=== PATIENT | female | born 1945 | race American Indian/Alaskan Native ===

== ENCOUNTER 2016-06-06 15:35 | Outpatient (CLI) | payer MEDICARE, OTHER | END 2016-06-06 15:36 | disposition home or self-care (01) | LOC: LABHHL 15:35 | PROVIDERS: ATTEND Internal Medicine Gastroenterology | DX: Z12.11 Encounter for screening for malignant neoplasm of colon (principal); K59.00 Constipation, unspecified; R10.32 Left lower quadrant pain | CPT/HCPCS: 88305 ==

== ENCOUNTER 2016-07-04 10:24 | Outpatient (CLI) | payer MEDICARE, OTHER ==
--- NOTE | 2016-07-04 14:19 | Mammography Report ---
BILATERAL DIGITAL SCREENING MAMMOGRAM with CAD: 07/04/16 10:24:00 CLINICAL: Routine screening. COMPARISON:06/21/14 FINDINGS: The breasts are heterogeneously dense, which may obscure small masses. No mass, architectural distortion or suspicious calcifications. IMPRESSION: No mammographic evidence of malignancy. BI-RADS CATEGORY: 1 - - Negative RECOMMENDATION: Routine mammographic screening in one year. COMMENT: Patient follow-up letters are generated by our [employer] MD application. The
--- NOTE | 2016-07-04 14:20 | Mammography Report ---
BONE DEXA:07/04/16 10:24:00 CLINICAL: Postmenopausal. No comparison. TECHNIQUE: Two site bone DEXA performed on an Hologic scanner. FINDINGS: The average BMD of the lumbar spine L1-L4 is 1.118g/cm squared with a T-score of -0.3 and a Z-score of by 2.1. The average BMD of the left hip is 0.831g/cm squared with a T-score of -1.3 and a Z-score of -0.1. IMPRESSION: 1. WHO classification: Normal with average fracture risk based on lumbar spine measurements. 2. WHO classification: Osteopenia with increased fracture risk based on left hip measurements. RECOMMENDATION: Clinical correlation and routine screening. DEFINITIONS: BMD = Bone Mineral Density T-score = BMD related to mean peak bone mass of young adult (mean expressed in Standard Deviation) Z-score = Age matched BMD expressed in SD World Health Organization (WHO) Diagnostic Criteria Normal T-score > -1 SD Osteopenia T-score between -1 and -2.4 SD Osteoporosis T-score -2.5 SD or below NOTE: BMD is not the only risk factor for fracture. One should also consider factors such as the patient's age, risk of falling, previous osteoporotic fracture, family history of osteoporotic fractures, current smoker, and low body weight. Z-scores are not calculated if >80 years of age.
== END 2016-07-04 10:25 | disposition home or self-care (01) ==
LOC: SPVWC 10:24
PROVIDERS: ATTEND Family Medicine
DX: Z12.31 Encounter for screening mammogram for malignant neoplasm of breast (principal); Z13.820 Encounter for screening for osteoporosis; M85.88 Other specified disorders of bone density and structure, other site; Z78.0 Asymptomatic menopausal state
CPT/HCPCS: 77080; G0202; 77067

== ENCOUNTER 2019-06-09 09:50 | Emergency (ER) | payer MEDICARE, OTHER ==
[2019-06-09 13:21] LABS: Bilirubin,Urine NEG (Negative); Blood,Urine NEG (Negative); Color,Urine Yellow (Yellow); Protein,Urine <15 mg/dL mg/dL (Negative); Urobilinogen,Urine < 2.0 mg/dL (<2.0)
[2019-06-09 13:36] LABS: WBC,Urine < 1.0 /HPF (0.0-6.0)
--- NOTE | 2019-06-09 14:15 | Emergency Department Report ---
ED General Adult HPI - General Chief complaint: Back Pain/Injury Stated complaint: LOWER BACK PAIN EXTREME Time Seen by Provider: 06/09/19 13:25 Source: patient Mode of arrival: Ambulatory Limitations: No Limitations - History of Present Illness Initial comments: 73yo BF states that she has low-mid back pain that has been present for weeks but became worse last night. She denies injury or fall. Pt states that she receives some comfort while lying flat but then she begins to have muscle spasms. -: week(s) (3) Location: back Radiation: non-radiation Severity scale (0 -10): 10 Quality: aching Consistency: constant Improves with: none Worsens with: movement Associated Symptoms: denies other symptoms Treatments Prior to Arrival: none - Related Data Allergies Allergy/AdvReac Type Severity Reaction Status Date / Time No Known Allergies Allergy Unverified 06/09/19 09:52 ED Review of Systems ROS: Stated complaint: LOWER BACK PAIN EXTREME Other details as noted in HPI Constitutional: no symptoms reported Musculoskeletal: as per HPI ED Past Medical Hx - Past Medical History Previous Medical History?: Yes Hx Hypertension: Yes Hx Diabetes: Yes Additional medical history: Hyperlipidemia - Surgical History Past Surgical History?: Yes Additional Surgical History: hysterectomy, intestin - Social History Smoking Status: Never Smoker Substance Use Type: None ED Physical Exam - General Limitations: No Limitations General appearance: alert, in no apparent distress - Head Head exam: Present: atraumatic, normocephalic - Eye Eye exam: Present: normal appearance, PERRL, EOMI Pupils: Present: normal accommodation - ENT ENT exam: Present: normal exam, normal orophraynx - Neck Neck exam: Present: normal inspection, full ROM. Absent: tenderness - Respiratory Respiratory exam: Present: normal lung sounds bilaterally. Absent: respiratory distress, wheezes - Cardiovascular Cardiovascular Exam: Present: regular rate, normal rhythm, normal heart sounds - GI/Abdominal GI/Abdominal exam: Present: soft. Absent: distended, tenderness - Rectal Rectal exam: Present: deferred - Extremities Exam Extremities exam: Present: normal inspection, full ROM. Absent: tenderness - Back Exam Back exam: Present: full ROM (limted flexion and extension), vertebral tenderness (lower lumbar tenderness). Absent: CVA tenderness (R), CVA tenderness (L) - Neurological Exam Neurological exam: Present: alert, altered, oriented X3, normal gait - Psychiatric Psychiatric exam: Present: normal affect, normal mood. Absent: depressed - Skin Skin exam: Present: warm, dry, intact ED Course Vital Signs 06/09/19 06/09/19 06/09/19 09:56 10:13 14:52 Temperature 98.1 F 98.1 F 97.6 F Pulse Rate 82 82 68 Respiratory 18 16 12 Rate Blood Pressure 145/84 Blood Pressure 145/84 142/74 [Right] O2 Sat by Pulse 99 99 Oximetry ED Medical Decision Making - Radiology Data [facility] [address] [place] [address] Cat Scan Report Signed Patient: RAUL CABRERA MR#: [id number] : 1945 Acct:[id number] Age/Sex: 73 / F ADM Date: 06/09/19 Loc: ED Attending Dr: Ordering Physician: LATOYA RODRIGEZ PA-C Date of Service: 06/09/19 Procedure(s): CT abdomen pelvis wo con Accession Number(s): [id number] cc: LATOYA RODRIGEZ PA-C CT of the abdomen and pelvis without contrast INDICATION: Back pain COMPARISON: None FINDINGS: Lung bases are clear. The liver, spleen, pancreas and adrenal glands show no gross abnormalities with slight nodularity of the adrenal glands likely benign. There is a 1 mm stone in the left mid pole. No right renal calculi are seen. No hydronephrosis or perinephric edema. No gross renal masses. There are gallstones in the gallbladder without definite cholecystitis. No biliary tree dilation. No fluid or adenopathy in the upper abdomen. CT of the pelvis shows a normal appendix. No ureteral stones are seen. No stone fragments seen in the bladder. Uterus has been removed. No pelvic or inguinal adenopathy. No diverticulosis or diverticulitis. No significant skeletal lesion. IMPRESSION: Small left intrarenal stone. No ureteral stones or inflammatory process. Automated exposure control was utilized to diminish radiation dose. Signer Name: Dean Kumar MD Signed: 06/09/2019 4:52 PM Workstation Name: [id number] Transcribed By: LASHAE Dictated By: Dean Kumar MD Electronically Authenticated By: Dean Kumar MD Signed Date/Time: 06/09/191651 DD/ 1645 TD/TT: - Medical Decision Making 73yo BF states that she has low-mid back pain that has been present for weeks but became worse last night. She denies injury or fall. Pt states that she receives some comfort while lying flat but then she begins to have muscle spasms. Pt was informed that her CT scan showed a small left intrarenal stone. Pt was explained that her pain is most suggestive of osteoarthritis. She was explained to continue Tylenol 500mg BID for pain as needed. Pt verbalized understanding and agreed with the plan of care. Critical care attestation.: If time is entered above; I have spent that time in minutes in the direct care of this critically ill patient, excluding procedure time. ED Disposition Clinical Impression: Low back pain Disposition: DC-01 TO HOME OR SELFCARE Is pt being admited?: No Does the pt Need Aspirin: No Condition: Stable Instructions: Back Pain (ED) Additional Instructions: Pt was explained that her pain is most suggestive of osteoarthritis. She was explained to continue Tylenol 500mg BID for pain as needed. Pt verbalized understanding and agreed with the plan of care. Pt will f/u with PCP in 3-5 days and see ER as needed. Referrals: ALISA WEBB MD [Primary Care Provider] - 3-5 Days [facility] [Outside] - 3-5 Days Time of Disposition: 17:24
[2019-06-09] MEDS ORDERED: ACETAMINOPHEN 500 MG TAB PO STA (14:20)
[2019-06-09 14:53] VITALS: BP 142/74
--- NOTE | 2019-06-09 16:57 | Cat Scan Report ---
CT of the abdomen and pelvis without contrast INDICATION: Back pain COMPARISON: None FINDINGS: Lung bases are clear. The liver, spleen, pancreas and adrenal glands show no gross abnormal ities with slight nodularity of the adrenal glands likely benign. There is a 1 mm stone in the left m id pole. No right renal calculi are seen. No hydronephrosis or perinephric edema. No gross renal mass es. There are gallstones in the gallbladder without definite cholecystitis. No biliary tree dilation. No fluid or adenopathy in the upper abdomen. CT of the pelvis shows a normal appendix. No ureteral stones are seen. No stone fragments seen in the bladder. Uterus has been removed. No pelvic or inguinal adenopathy. No diverticulosis or diverticuli tis. No significant skeletal lesion. IMPRESSION: Small left intrarenal stone. No ureteral stones or inflammatory process. Automated exposure control was utilized to diminish radiation dose. Signer Name: Dean Kumar MD Signed: 06/09/2019 4:52 PM Workstation Name: [id number]
== END 2019-06-09 17:30 | disposition home or self-care (01) ==
LOC: ED 09:50
DX: M54.5 Low back pain (principal); M54.9 Dorsalgia, unspecified; I10 Essential (primary) hypertension; E11.9 Type 2 diabetes mellitus without complications; E78.5 Hyperlipidemia, unspecified; N20.0 Calculus of kidney; Z90.710 Acquired absence of both cervix and uterus
CPT/HCPCS: 74176; 81001

== ENCOUNTER 2021-11-06 14:55 | Outpatient (CLI) | payer MEDICARE, OTHER ==
--- NOTE | 2021-11-06 17:01 | Mammography Report ---
DEXA BONE DENSITY SCAN INDICATION / CLINICAL INFORMATION: SCREENING / OSTEOPOROSIS. 76 years Female COMPARISON: 05/23/2019 LUMBAR SPINE, L1-L4: - Bone mineral density (BMD) = 1.214 g/cm2. - T-score = 0.6 - Change (%) since most recent prior (if available): -2.6 LEFT HIP, NECK : - Bone mineral density (BMD) = 0.695 g/cm2. - T-score = -1.8 - Change (%) since most recent prior (if available): +2.4 IMPRESSION: 1. WHO Classification: Osteopenia. Fracture Risk: Increased. 2. 10-Year Fracture Risk (FRAX) = Major Osteoporotic Not reported.% / Hip: Not reported.% FRAX generally not reported for patients with normal or osteoporotic BMD, in [id number] noemi ents younger than age 50, or in patients undergoing pharmacotherapy BMD Reporting Guidelines (ISCD, 2015) BMD Reporting in Postmenopausal Women and in Men Age 50 and Older - T-scores are preferred. - The WHO densitometric classification is applicable. BMD Reporting in Females Prior to Menopause and in Males Younger Than Age 50 - Z-scores, not T-scores, are preferred. This is particularly important in children. - A Z-score of -2.0 or lower is defined as below the expected range for age, and a Z-score above -2.0 is within the expected range for age. - Osteoporosis cannot be diagnosed in men under age 50 on the basis of BMD alone. - The WHO diagnostic criteria may be applied to women in the menopausal transition. http://www.iscd.org/official-positions/7484-feda-mcncttqy-positions-adult/ Signer Name: Mateo Avery MD Signed: 11/06/2021 4:57 PM Workstation Name: [email or web address]
== END 2021-11-06 14:56 | disposition home or self-care (01) ==
LOC: SPVWC 14:55
PROVIDERS: ATTEND Family Medicine
DX: Z12.31 Encounter for screening mammogram for malignant neoplasm of breast (principal); M81.0 Age-related osteoporosis without current pathological fracture; M85.88 Other specified disorders of bone density and structure, other site
CPT/HCPCS: 77067; 77080